=== PATIENT | male | born 1995 | race Caucasian/White ===

== ENCOUNTER → 2020-06-15 | Outpatient (CLI) | payer OTHER ==
[~2020-06-15] MED LIST: METHACHOLINE KIT (J7674) INH ONE
--- NOTE | 2020-06-15 09:09 | PFTRPT ---
Height: 70.00 Inches Weight: 208.00 Lbs BSA: 2.12 Diagnosis: R06.02 DATE: 06/15/2020 ORDERED BY: Traci Tovar NP. QUALITY: Study of excellent technical quality. PROCEDURE: Under protocol, methacholine was administered. Even after a maximal dose of 25 mg or 188.875 CDUs, no provocation dose ever achieved. IMPRESSION: Negative methacholine challenge study. MTDD
== END ==
LOC: M CARPUL 08:04
PROVIDERS: ATTEND Nurse Practitioner Adult Health
DX: R06.02 Shortness of breath (principal)
CPT/HCPCS: 94070; J7674